=== PATIENT | male | born 1965 | race Caucasian/White ===

== ENCOUNTER → 2016-08-28 | Outpatient (CLI) | payer OTHER ==
[2016-08-28 16:48] LABS: Basophils # (A) 0.1 k/uL (0-0.2); Basophils % (A) 1 %; CH 29.4; CHCM 32.3; Eosinophils # (A) 0.3 k/uL (0-0.7); Eosinophils % (A) 3 %; HDW 2.24; HGB 13.3 gm/dL (13.0-17.5); Luc # (Auto) 0.16; Luc % (Auto) 2; Lymphocytes # (A) 2.7 k/uL (1.0-4.8); Lymphocytes % (A) 27 %; MCHC 31.8 g/dL (31.0-37.0); MCV 91.4 fL (80.0-100.0); Mean Platelet Volume 6.5; Monocytes # (A) 0.6 k/uL (0-1.0); Monocytes % (A) 6 %; Neutrophils # (A) 6.1 k/uL (1.3-7.7); Neutrophils % (A) 62 %; RDW 13.1 % (11.5-15.5); WBC 9.8 k/uL (3.8-10.6); WBC (Perox) 9.84
[2016-08-28 16:50] LABS: Appearance,Urine Clear (Clear); Bilirubin,Urine Negative (Negative); Glucose,Urine (UA) Negative (Negative); Ketones,Urine Negative (Negative); Leukocyte Esterase,Urine Negative (Negative); Nitrite,Urine Negative (Negative); PH, Urine 6.5 (5.0-8.0); Protein,Urine Trace (Negative); Specific Gravity,Urine 1.015 (1.001-1.035); UA Billing (MACRO vs. MICRO) CHEM; Urobilinogen,Urine <2.0 mg/dL (<2.0)
[2016-08-28 16:55] LABS: INR 1.1 (<1.1); Partial Thromboplastin Time 24.7 sec (22.0-30.0); Prothrombin Time 11.2 sec (9.0-12.0)
[2016-08-28 17:21] LABS: ALT 22 U/L (21-72); AST 22 U/L (17-59); Alkaline Phosphatase 41 U/L (38-126); Anion Gap 8 mmol/L; Blood Urea Nitrogen 24 mg/dL (9-20); Calcium 9.2 mg/dL (8.4-10.2); Carbon Dioxide 28 mmol/L (22-30); Chloride 101 mmol/L (98-107); Glucose 88 mg/dL (74-99); Non-African American GFR(MDRD) >60 (>60 ml/min/1.73 sqM); Potassium 4.5 mmol/L (3.5-5.1); Sodium 137 mmol/L (137-145); Total Bilirubin 0.4 mg/dL (0.2-1.3); Total Protein 7.4 g/dL (6.3-8.2)
== END | disposition home or self-care (01) ==
LOC: LABPAT 15:37
PROVIDERS: ATTEND Orthopaedic Surgery
DX: Z01.812 Encounter for preprocedural laboratory examination (principal); Z79.899 Other long term (current) drug therapy
CPT/HCPCS: 80053; 81003; 85025; 85610; 85730; 87070

== ENCOUNTER 2016-09-01 06:29 | Inpatient (IN) | payer OTHER ==
[2016-08-28 14:41] VITALS: BMI 20.2
[~2016-09-01 06:29] MED LIST: ACETAMINOPHEN TAB 500 MG TAB PO ONE; DEXAMETHASONE SOD PHOSPHATE 10 MG/ML 1 ML VIAL IV ONE; HYDROmorphone 1 MG/ML 1 ML SYRINGE IVP PRN; MELOXICAM 7.5 MG TAB PO ONE; MIDAZOLAM 2 MG/2 ML VIAL IV PRN; ONDANSETRON 4 MG/2 ML VIAL IVP ONE; SCOPOLAMINE 1.5MG/72HR PATCH TRANSDERM ONE; TRANEXAMIC ACID 1,000 MG in SODIUM CHLORIDE 0.9% 100 ML IVPB ONE; ceFAZolin 2 GM in SODIUM CHLORIDE 0.9% 100 ML IVPB ONE
[2016-09-01] MEDS ORDERED: LACTATED RINGERS 1,000 ML IV ONE ×2 (06:45→09:15)
[2016-09-01] MEDS ORDERED: LIDOCAINE 1% 20 ML VIAL (10MG/ML) FOR IV START INTRADERMA ONE (07:18)
[2016-09-01] MEDS ORDERED: SODIUM CHLORIDE 0.9% IRRIG 1,000 ML BTL IRRIGATION ONE (07:41)
[2016-09-01] MEDS ORDERED: HEPARIN SODIUM,PORCINE 10,000 UNIT/ML 1 ML VIAL ONE (07:41)
[2016-09-01] MEDS ORDERED: ceFAZolin 3,000 MG in SODIUM CHLORIDE 0.9% IRRIGATIO 3,000 ML IRRIGATION ONE (07:56)
[2016-09-01] MEDS: ROPIVACAINE 246.25 MG, EPINEPHrine 0.5 MG, KETOROLAC 30 MG, cloNIDine HCL/PF 80 MCG, WA... MISCELLANE ONE ×10 (08:12→09:17)
[2016-09-01] MEDS: LACTATED RINGERS 1,000 ML IV SCH (08:40)
--- NOTE | 2016-09-01 09:40 | P.OP ---
Date of Procedure: 09/01/16 Preoperative Diagnosis: Severe osteoarthritis the left hip secondary to developmental dysplasia Postoperative Diagnosis: Severe osteoarthritis the left hip secondary to developmental dysplasia Procedure(s) Performed: Left total hip arthroplasty with a direct anterior approach Implants: Kelley and nephew Polarstem size 3 standard Kelley & Nephew R3, 3 hole acetabular shell, 52 mm Kelley & Nephew reflection 6.5 mm cancellus screw, 20 mm 2 Kelley & Nephew R3, XLPE 20 acetabular liner Kelley & Nephew Oxinium femoral head 36 m, -3 All components were press-fit. The articulation is ceramic on polyethylene. Anesthesia: spinal Surgeon: Wale Kraus Electronic Imaging System Operator #1: Daly Villa Electronic Imaging System Operator #2: Rachel Shaw Estimated Blood Loss (ml): 350 (190 mL returned with Cell Saver) Pathology: other (Femoral head) Condition: stable Disposition: PACU Indications for Procedure: After failure of conservative treatment we discussed the surgical and nonsurgical treatment options at length. Patient wishes to proceed with a total hip arthroplasty with a direct anterior approach. Complications specific to this procedure were discussed at length, including but not limited to infection, leg length discrepancy, dislocation, and nerve injury. Patient is aware of all these complications and informed consent was obtained Operative Findings: The operative findings are consistent with severe osteoarthritis secondary to developmental dysplasia of the left hip. Description of Procedure: Patient was seen and evaluated in the preoperative area, consent was reviewed, and the surgical site was marked with a skin marker. Patient was then brought to the operating room and given prophylactic antibiotics intravenously. 1 g of Tranexamic acid was also given. A spinal anesthetic was administered by the anesthesia department. The patient was then placed on the [place] table with the bony prominences well-padded. The hip area was then prepped and draped in usual sterile fashion. A universal timeout was then performed, which confirmed the patient's name, surgical site, ALLERGIES, and procedure being performed. Next the incision site was located at 1 cm distal and 1 cm lateral to the anterior superior iliac spine. The skin and subcutaneous tissues were sharply incised. Incision was carefully dissected down to the fascia overlying the tensor fascia kristy muscle. This fascia was then incised in line with the incision. Next, using blunt finger dissection, the tensor fascia kristy muscle was dissected off its investing fascia. The muscle was then carefully retracted laterally with a cobra retractor over the lateral neck of the femur. Next, the circumflex vessels were identified and cauterized using the AquaMantis device. The anterior hip capsule was then exposed. The capsule was then opened and an inverted T fashion. Retention sutures were placed in the inferior arms of the capsule. Cobra retractors were then placed intracapsularly. The proximal femur was then visualized. The femoral neck was then osteotomized appropriate level above the lesser trochanter. Small amount of traction was placed with the [place] table. A small wedge of bone was then removed from the remaining femoral head. Next, using a corkscrew femoral head was easily removed from the acetabulum. On gross visual inspection, the femoral head had complete loss of articular cartilage in multiple periarticular osteophytes. Attention was then turned to the acetabulum. the acetabulum was exposed and any remaining labrum was excised. Sequential reaming of the acetabulum was performed using fluoroscopic guidance. When the appropriate size was reached, a trial was then placed. The position and fit of the trial was checked with fluoroscopy. The trial was then removed. Then, using fluoroscopic guidance, the final implant was impacted at 20 of anteversion and 40 of abduction, and fully seated in the acetabulum. 2 screws were then placed in the acetabulum. Again fluoroscopy was used to check position of the screws. Next, the liner was then impacted, with a 20 elevated liner located in the anterior superior quadrant. Component locking was confirmed. Attention was then directed to the femur. With the aid of the [place] table, the femur was externally rotated to approximately 130, extended, and abducted under the opposite leg. A side hook was then placed under the proximal femur, and the side hook elevator was used to elevate the proximal femur. Retractors were then placed. A capsular release was performed, as well as a release of the conjoined tendon, which afforded excellent visualization of the proximal femur. Next, a box osteotome was used to lateralize the proximal femur. A merchandise execution leader was then used to locate the femoral canal. Sequential broaching was then performed with appropriate size which afforded excellent fixation in the proximal femur. A trial was then placed with appropriate head and neck, and the hip was gently reduced with the aid of the [place] table. Fluoroscopy was then used to check position of the components, as well as to ensure equal leg lengths. The hip was then gently dislocated and the trials were then removed. Final implants were then impacted and the hip was again reduced. Final fluoroscopic x-rays confirmed that the components were in anatomic position, as well as equal leg lengths. The hip was also taken through range of motion, and found to be stable. The hip was then copiously irrigated with antibiotic solution with pulsatile lavage. The hip was then irrigated with Irrisept solution. The soft tissues were then injected with a ropivacaine solution, which consisted of 246.25 mg of ropivacaine, 0.5 mg of epinephrine, 30 mg of Toradol, 80 g of clonidine, and 48.45 mL of sterile water, for a total of 100 mL of fluid injected. A second dose of 1 g of Tranexamic acid was also given. the fascia was then closed with 2-0 strata fix suture. The subcutaneous tissue was closed with 3-0 Vicryl. The subcuticular tissue was closed with 3-0 strata fix suture. The skin was then closed with Dermabond tape. The patient was then transferred to the recovery room in stable condition. The auction assistant HELLEN Decker was required due to the complexity of surgery , and the need for skilled surgical aide for positioning, draping, exposure , retraction, and closure of the wound.
--- NOTE | 2016-09-01 09:42 | XR ---
Fluoroscopy History: Postop hip ANT LT HIP. 56 SECS FL TIME. [address] MORENO[address]
[2016-09-01] MEDS ORDERED: MAGNESIUM HYDROXIDE 2,400 MG/10 ML CUP PO PRN (09:55)
[2016-09-01] MEDS ORDERED: HYDROmorphone 1 MG/ML 1 ML SYRINGE IVP PRN ×3 (09:55)
[2016-09-01] MEDS ORDERED: ONDANSETRON 4 MG/2 ML VIAL IVP PRN (09:55)
[2016-09-01] MEDS ORDERED: DIAZEPAM 5 MG TAB PO PRN ×2 (09:55)
[2016-09-01] MEDS ORDERED: hydrOXYzine PAMOATE 25 MG CAP PO PRN (09:55)
[2016-09-01] MEDS ORDERED: HYDROcodone/APAP 7.5-325MG 1 EACH TAB PO PRN (09:55)
[2016-09-01] MEDS ORDERED: NALOXONE 0.4 MG/ML 1 ML VIAL IV PRN (09:55)
[2016-09-01] MEDS: SODIUM CHLORIDE 0.9% 1,000 ML IV SCH ×2 (11:00→23:48)
[2016-09-01] MEDS: HYDROcodone/APAP 7.5-325MG 1 EACH TAB PO PRN ×3 (13:29→23:46)
[2016-09-01] MEDS: ceFAZolin 2 GM in SODIUM CHLORIDE 0.9% 100 ML IVPB SCH ×2 (16:54→23:49)
[2016-09-01] MEDS ORDERED: SENNOSIDES-DOCUSATE SODIUM 1 EACH TAB PO SCH (21:00)
[2016-09-01] MEDS: ASPIRIN 325 MG TAB PO SCH (23:46)
[2016-09-02] MEDS: HYDROcodone/APAP 7.5-325MG 1 EACH TAB PO PRN (04:59)
[2016-09-02] MEDS: LACTATED RINGERS 1,000 ML IV SCH (06:27)
[2016-09-02 07:56] VITALS: BP 112/74; PULSE 58; RESP 16; TEMP 97.8
[2016-09-02 08:22] LABS: Basophils % (A) 0 %; CHCM 32.7; Eosinophils # (A) 0.1 k/uL (0-0.7); Eosinophils % (A) 1 %; HCT 31.3 % (39.0-53.0); HDW 2.24; Luc % (Auto) 2; Lymphocytes % (A) 17 %; MCH 29.3 pg (25.0-35.0); MCHC 31.8 g/dL (31.0-37.0); MCV 92.2 fL (80.0-100.0); Monocytes # (A) 0.9 k/uL (0-1.0); Monocytes % (A) 8 %; Neutrophils % (A) 73 %; RDW 13.4 % (11.5-15.5); WBC 12.2 k/uL (3.8-10.6); WBC (Perox) 13.02
[2016-09-02] MEDS: ASPIRIN 325 MG TAB PO SCH (08:49)
[2016-09-02] MEDS ORDERED: MELOXICAM 7.5 MG TAB PO SCH (09:00)
--- NOTE | 2016-09-02 09:41 | P.DS ---
Providers Date of admission: 09/01/16 06:29 Expected date of discharge: 09/02/16 Attending physician: Wale Kraus Consults: 09/01/16 09:55 Consult Physician Routine Consulting Provider: Hieu Gerber Consult Reason/Comments: medical management Do you want consulting provider notified?: Yes Primary care physician: Hieu Gibsonhven [facility] Hospital Course: This is a 51-year-old male with known history of degenerative arthritis of the left hip secondary to developmental dysplasia. The patient presents for evaluation. After discussion and consideration patient elects to proceed with total hip arthroplasty. The patient is seen preoperatively by Dr. Kraus and cleared for surgery. Patient is admitted to [facility] on 09/01/2016 for total hip arthroplasty. The procedures performed without complication or sequelae. The patient is doing well postoperatively. Labs and vital signs are stable on day of discharge. On day of discharge patient's hip incision is healing well. There is minimal erythema. There is no drainage noted at this time. There is minimal soft tissue swelling to the hip and thigh. Patient has full foot and ankle motion without difficulty or pain. Patient was up and walking with physical therapy with no difficulty. Neurovascular status to the left lower extremity is intact. Patient is discharged home in good condition. Please see med rec for accurate list of home medications. Plan - Discharge Summary New Discharge Prescriptions: Aspirin 325 mg PO BID #60 tab HYDROcodone/APAP 7.5-325MG [Roby 7.5-325] 1 - 2 tab PO Q4-6H PRN #60 tab PRN Reason: Pain Sennosides-Docusate Sodium [Senokot-S] 1 tab PO BID #60 tablet Discharge Medication List HYDROcodone/APAP 10-325MG [Roby 10-325] 1 tab PO Q6H PRN 08/28/16 [History] Aspirin 325 mg PO BID #60 tab 09/02/16 [Rx] HYDROcodone/APAP 7.5-325MG [Roby 7.5-325] 1 - 2 tab PO Q4-6H PRN #60 tab [Rx] Sennosides-Docusate Sodium [Senokot-S] 1 tab PO BID #60 tablet 09/02/16 [Rx] Follow up Appointment(s)/Referral(s): Wale Kraus DO [Doctor of Osteopathic Medicine] - 2 Weeks Activity/Diet/Wound Care/Special Instructions: Weightbearing as tolerated with walker May shower after 2 days if no drainage from the incision Follow-up with [facility] in 2 weeks with any questions or concerns, [phone] [facility]: #[phone] Discharge Disposition: HOME WITH HOME HEALTH SERVICES
--- NOTE | 2016-09-02 17:41 | CONS ---
DATE OF CONSULTATION: CHIEF COMPLAINT: Arthritis of the left hip. HISTORY OF PRESENT ILLNESS: This is the first admission for this 51-year-old white male to this hospital that I am aware of. He comes in for an elective left hip replacement. He has been in fairly good health, although he is a heavy smoker. REVIEW OF SYSTEMS: He has had no headaches, neurologic problems, difficulty with vision or hearing, cough, hemoptysis, heart disease, palpitations, murmurs, rheumatic fever, orthopnea, PND, abdominal pain, ( ) disease, nausea, vomiting, hematemesis, melena, hematochezia, colitis, diverticulosis, diverticulitis, hemorrhoids, jaundice, hepatitis, cirrhosis, hematuria, frequency, urgency, renal failure, diabetes, etc. Past medical history, family history, and personal and social histories are essentially unremarkable and can be found in his admitting summary. ALLERGIES: HE IS NOT ALLERGIC TO ANY MEDICATION. The only medicine that he has been taking is hydrocodone 10 mg every 4 hours p.r.n. He has had a pneumothorax in the past and he does smoke a pack of cigarettes a day. PHYSICAL EXAMINATION: Blood pressure 138/70 with a pulse of 86, respirations of 32 and temperature 99.2. GENERAL: He appeared to be slender, well developed, well nourished, in no acute distress. Skin color is normal. Skin is warm and dry. Lymph nodes are not enlarged. Head, ears, eyes, nose, mouth and throat were normal. NECK: Neck veins not distended. Thyroid is not enlarged. Chest is clear. Cardiac exam is normal. No murmurs or extra sounds. ABDOMEN: Flat, soft, nontender, without visceromegaly or masses. Bowel sounds are present. EXTREMITIES: Normal. Dressing on the left hip is dry. Pulses are good. NEUROLOGICAL: Intact. IMPRESSION: 1. Osteoarthritis of the left hip. 2. Chronic obstructive pulmonary disease. RECOMMENDATIONS: None. He is doing well.
--- NOTE | 2016-09-02 22:56 | PN ---
DATE OF SERVICE: 09/02/2016 CHIEF COMPLAINT: Status post left hip replacement. HISTORY OF PRESENT ILLNESS: The gentleman is doing well and may be going home today. PHYSICAL EXAMINATION: CHEST: Clear. CARDIAC: Normal. ABDOMEN: Soft, nontender. IMPRESSION: Status post left hip replacement. PLAN: Possibly home today. Will follow him as an outpatient.
--- NOTE | 2016-09-03 13:56 | XR ---
EXAMINATION TYPE: XR Hip Limited LT DATE OF EXAM: 09/01/2016 10:15 AM COMPARISON: NONE HISTORY: Postop TECHNIQUE: One view submitted. FINDINGS: There is a prosthetic hip in near anatomic alignment. There is soft tissue edema and emphysema. IMPRESSION: 1. Postoperative change. Appears in near-anatomic alignment.
== END 2016-09-02 11:48 | disposition home health service (06) | DRG 470 ==
LOC: 2ORMAIN 06:29 → 3SUR 09:54
PROVIDERS: ADMIT Orthopaedic Surgery; ATTEND Orthopaedic Surgery
PROC: 0SRB04A Replacement of Left Hip Joint with Ceramic on Polyethylene Synthetic Substitute, Uncemented, Open Approach (ICD-10-PCS; principal; 2016-09-01 07:30)
DX: M16.12 Unilateral primary osteoarthritis, left hip (principal); J44.9 Chronic obstructive pulmonary disease, unspecified; Z72.0 Tobacco use; Q65.89 Other specified congenital deformities of hip
CPT/HCPCS: 73501; 81025; 85025; 86850; 86891; 86900; 86901; 88300

== ENCOUNTER → 2016-11-15 | Outpatient (CLI) | payer OTHER ==
--- NOTE | 2016-11-15 11:28 | MR ---
PRE AND POSTCONTRAST ENHANCED MRI OF THE BRAIN: CLINICAL HISTORY: lower limb weakness CONTRAST: 15 ML Multihance Multiplanar and multispin-echo imaging of the brain was performed both before and after the administr ation of contrast. The ventricles, basal cisterns and sulci overlying the cerebral convexities are within normal limits. There is no evidence for midline shift or mass effect. Acute intracranial hemorrhage or extra-axial collection is not evident. Within both cerebral hemispheres within the hodges radiata, centrum semioval bilaterally subcortical location as well as periventricular location there are approximately 12-15 foci of small focal increa sed signal all measuring less than 4 mm which are nonspecific. Differential diagnostic possibilities include demyelination, chronic small vessel ischemic change, sequela of chronic migraine headaches an d Lyme's disease to name a few. There are also multiple foci of increased signal within the audi and midbrain. Following contrast administration, there is no evidence for pathologic enhancement or enhancing mass. The paranasal sinuses and mastoid air cells are well-aerated. IMPRESSION: 1. Foci of increased signal as noted with differential diagnostic possibilities discussed above. 2. No evidence for acute intracranial process.
== END | disposition home or self-care (01) ==
LOC: RADMRIMAIN 09:22
PROVIDERS: ATTEND Family Medicine
DX: R94.09 Abnormal results of other function studies of central nervous system (principal); M62.838 Other muscle spasm
CPT/HCPCS: 70553; A9577

== ENCOUNTER → 2017-03-16 | Outpatient (CLI) | payer OTHER ==
--- NOTE | 2017-03-16 20:55 | MR ---
EXAMINATION TYPE: MR lumbar spine wo con DATE OF EXAM: 03/16/2017 8:28 PM COMPARISON: NONE HISTORY: Low back pain with weakness in both legs for 2 years Multiplanar, MultiSpin echo imaging of the lumbar spine was performed. L1-L2: Normal disc appearance without desiccation. No herniation, protrusion or disc bulging. No ca nal stenosis is present. Foramina are patent bilaterally. L2-L3: Mild disc desiccation noted. Circumferential disc bulge. Mild effacement ventral thecal sac. N o evidence for disc herniation or central stenosis. No lateral recess stenosis. Facet joint arthropat hy with mild right foraminal encroachment. L3-L4: Mild disc desiccation noted. Circumferential disc bulge. Mild effacement ventral thecal sac. N o evidence for disc herniation or central stenosis. No lateral recess stenosis. Facet joint arthropat hy with mild right foraminal encroachment. L4-L5: Mild disc desiccation. Left lateral disc herniation situated at the level of the left neural f oramen resulting in left lateral recess stenosis and left foraminal encroachment. No evidence for muna tral stenosis. L5-S1: Moderate disc desiccation. Circumferential disc bulge. Mild effacement ventral thecal sac. No evidence for disc herniation or central stenosis. Bilateral foraminal encroachment with facet joint a rthropathy. Lumbar segments are intact. No paraspinal masses are identified. Conus medullaris has a normal appe arance. Multilevel left facet joint arthropathy and ventral spondylosis. IMPRESSION: 1. Multilevel degenerative disc disease. 2. Left lateral disc herniation at L4-5 resulting in left lateral recess stenosis and left foraminal encroachment.
== END | disposition home or self-care (01) ==
LOC: RADMRIMAIN 19:41
PROVIDERS: ATTEND Psychiatry & Neurology Neurology
DX: M48.061 Spinal stenosis, lumbar region without neurogenic claudication (principal); M51.26 Other intervertebral disc displacement, lumbar region; M51.36 Other intervertebral disc degeneration, lumbar region; Z87.81 Personal history of (healed) traumatic fracture
CPT/HCPCS: 72148

== ENCOUNTER 2017-07-20 09:40 | Day surgery (SDC) | payer OTHER ==
[2017-07-17 10:43] VITALS: BMI 18.8
[2017-07-20 11:18] VITALS: RESP 16; TEMP 98
[2017-07-20] MEDS: LACTATED RINGERS 1,000 ML IV SCH ×2 (11:19→11:41)
[2017-07-20] MEDS ORDERED: LIDOCAINE 1% 20 ML VIAL (10MG/ML) FOR IV START INTRADERMA ONE (11:19)
--- NOTE | 2017-07-20 12:01 | P.PCN ---
Date of Procedure: 07/20/17 Preoperative Diagnosis: Weakness and Paresthesia in the Lower Extremities Rule out multiple sclerosis Postoperative Diagnosis: Same as above Procedure(s) Performed: Lumbar puncture Surgeon: Elida Sanchez Description of Procedure: Anesthesia= IV sedation with Versed and fentanyl and local lidocaine infiltration 1% 2 mL for skin and subcu infiltration. Condition= stable. Complications=none. Indication for the procedure= patient with a history of symptoms suggestive of multiple sclerosis and she was referred to have a lumbar puncture for diagnostic study procedure risk and benefits and alternatives discussed with the patient and she agreed with the preceding, Description of the procedure= patient in the procedure room sitting position and monitors applied, the back prepped with chlorhexidine , sterile technique, local infiltration of the skin and subcu with lidocaine 1% 2 mL, then 22-gauge quickie Needle advanced slowly at L4-5 interlaminar space, intrathecal access was obtained easily with Clear CSF, and no heme no paresthesia, a total of 12 mL of clear cerebrospinal fluid collected in 4 different tubes, the needle removed, Band-Aid applied , patient tolerated the procedure well without any complications, and further management as per her neurologist
[2017-07-20 12:36] VITALS: BP 122/80; PULSE 61
[2017-07-20] MEDS ORDERED: IV FLUID CONTINUATION 1,000 ML IV ONE (12:36)
[2017-07-20 13:29] LABS: Glucose,CSF 58 mg/dL (40-70); Total Protein,CSF 46 mg/dL (12-60)
[2017-07-20 15:14] LABS: Appearance,CSF Clear
[2017-07-20 15:15] LABS: CSF Tube Number 4; CSF Tube Volume 3.2; Nucleated Cells, CSF 0 u/L (0-5); Red Blood Cell,CSF 0 u/L (0-10)
[2017-07-20 16:14] LABS: DNA Double-Stranded NEGATIVE (NEGATIVE); RNP <0.2 AI
[2017-07-20 17:01] LABS: Rheumatoid Factor 4 IU/mL (0-15)
[2017-07-21 04:40] LABS: Angiotensin-1 Converting Enz. 32 U/L (8-52)
[2017-07-21 10:24] LABS: VDRL, Qualitative CSF Nonreactive (Nonreactive)
[2017-07-21 11:03] LABS: T4, Total 5.7 ug/dL (4.5 - 10.9)
[2017-07-21 11:14] LABS: Lyme IgG/IgM 0.2 Index
[2017-07-21 11:22] LABS: APTT 44 Sec(s) (<43); APTT 1:1 Mix 42 Sec(s) (<43); Dilute Russell Viper Venom 42 Sec(s) (<44)
[2017-07-21 13:30] LABS: IgG - CSF 1.9 mg/dL (0.0 - 3.4); Immunoglobulin G 880 mg/dL (700 - 1600)
== END 2017-07-20 12:52 | disposition home or self-care (01) ==
LOC: ORPAIN 09:40
PROVIDERS: ATTEND Anesthesiology
DX: R20.2 Paresthesia of skin (principal); R53.1 Weakness
CPT/HCPCS: 87476; 86592; 86235 ×3; 84157; 82945; 82040; 82042; 82784; 83916; 82164 ×2; 83873; 84436; 84443; 84450; 84460; 85730; 86431; 85613; 89050; 86618; 86780; 86038; 86225; 62270; J2001; 85732; 88108; 99152

== ENCOUNTER 2017-10-13 09:45 | Inpatient (IN) | payer OTHER ==
[2017-12-18 09:41] VITALS: BMI 19.2
[2017-12-21] MEDS ORDERED: MELOXICAM 7.5 MG TAB PO ONE (05:00)
[2017-12-21] MEDS ORDERED: ceFAZolin IN SWFI 2 GM/20 ML SYRINGE IVP ONE (05:00)
[2017-12-21] MEDS ORDERED: TRANEXAMIC ACID 1,000 MG in SODIUM CHLORIDE 0.9% 50 ML IVPB ONE ×4 (05:00)
[2017-12-21] MEDS ORDERED: ACETAMINOPHEN TAB 500 MG TAB PO ONE (05:00)
[2017-12-21] MEDS ORDERED: fentaNYL (PF) 50 MCG/ML 2 ML AMP IV PRN (05:26)
[2017-12-21] MEDS ORDERED: SCOPOLAMINE 1.5MG/72HR PATCH TRANSDERM ONE (05:26)
[2017-12-21] MEDS ORDERED: DEXAMETHASONE SOD PHOSPHATE 10 MG/ML 1 ML VIAL IV ONE (05:26)
[2017-12-21] MEDS ORDERED: MIDAZOLAM 2 MG/2 ML VIAL IV PRN (05:26)
[2017-12-21] MEDS ORDERED: ONDANSETRON 4 MG/2 ML VIAL IVP ONE (05:26)
[2017-12-21] MEDS ORDERED: ROPIVACAINE 246.25 MG, EPINEPHrine 0.5 MG, KETOROLAC 30 MG, cloNIDine HCL/PF 80 MCG, WA... MISCELLANE ONE ×5 (05:59)
[2017-12-21] MEDS ORDERED: METOCLOPRAMIDE 5 MG/ML 2 ML VIAL ONE (06:35)
[2017-12-21] MEDS ORDERED: FAMOTIDINE 20 MG/2 ML VIAL ONE (06:35)
[2017-12-21] MEDS: LACTATED RINGERS 1,000 ML IV SCH (06:43)
[2017-12-21] MEDS ORDERED: LIDOCAINE 1% 20 ML VIAL (10MG/ML) FOR IV START INTRADERMA ONE (06:44)
[2017-12-21] MEDS ORDERED: HYDROcodone/APAP 7.5-325MG 1 EACH TAB PO PRN (06:55)
[2017-12-21] MEDS ORDERED: DIAZEPAM 5 MG TAB PO PRN ×2 (06:55)
[2017-12-21] MEDS ORDERED: hydrOXYzine PAMOATE 25 MG CAP PO PRN (06:55)
[2017-12-21] MEDS ORDERED: NALOXONE 0.4 MG/ML 1 ML VIAL IV PRN (06:55)
[2017-12-21] MEDS ORDERED: ONDANSETRON 4 MG/2 ML VIAL IVP PRN (06:55)
[2017-12-21] MEDS ORDERED: MAGNESIUM HYDROXIDE 2,400 MG/10 ML CUP PO PRN (06:55)
[2017-12-21] MEDS ORDERED: HYDROmorphone 1 MG/ML 1 ML SYRINGE IVP PRN ×3 (06:55)
[2017-12-21] MEDS ORDERED: MIDAZOLAM 2 MG/2 ML VIAL ONE (06:59)
[2017-12-21] MEDS ORDERED: SODIUM CHLORIDE 0.9% 100 ML BAG ONE (06:59)
[2017-12-21] MEDS ORDERED: HEPARIN SODIUM,PORCINE 10,000 UNIT/ML 1 ML VIAL ONE (06:59)
[2017-12-21] MEDS ORDERED: SODIUM CHLORIDE 0.9% IRRIG 1,000 ML BTL IRRIGATION ONE (06:59)
[2017-12-21] MEDS ORDERED: PROPOFOL 10 MG/ML 20 ML VIAL IV ONE (06:59)
[2017-12-21] MEDS ORDERED: fentaNYL (PF) 50 MCG/ML 2 ML AMP ONE (06:59)
[2017-12-21] MEDS ORDERED: TRANEXAMIC ACID 1,000 MG/10 ML VIAL ONE (06:59)
[2017-12-21] MEDS ORDERED: ceFAZolin 3,000 MG in SODIUM CHLORIDE 0.9% IRRIGATIO 3,000 ML IRRIGATION ONE (07:32)
[2017-12-21] MEDS ORDERED: LACTATED RINGERS 1,000 ML IV ONE (08:01)
--- NOTE | 2017-12-21 08:34 | P.OP ---
Date of Procedure: 12/21/17 Preoperative Diagnosis: Severe osteoarthritis right hip Postoperative Diagnosis: Severe osteoarthritis right hip Procedure(s) Performed: Right total hip arthroplasty with a direct anterior approach Implants: Kelley and nephew Polarstem size 3 standard Kelley & Nephew R3, 3 hole acetabular shell, 52 mm Kelley & Nephew reflection 6.5 mm cancellus screw, 20 mm 2 Kelley & Nephew R3, XLPE 20 acetabular liner Kelley & Nephew Oxinium femoral head 36 m, +8 All components were press-fit. The articulation is Oxinium on polyethylene. Surgeon: Wale Kraus Water Pollution Control Technician #1: Rachel Hinkle Estimated Blood Loss (ml): 225 (140 mL returned with Cell Saver) Pathology: other (Femoral head) Condition: stable Disposition: PACU Indications for Procedure: After failure of conservative treatment we discussed the surgical and nonsurgical treatment options at length. Patient wishes to proceed with a total hip arthroplasty with a direct anterior approach. Complications specific to this procedure were discussed at length, including but not limited to infection, leg length discrepancy, dislocation, and nerve injury. Patient is aware of all these complications and informed consent was obtained Operative Findings: The operative findings are consistent with severe osteoarthritis of the right hip Description of Procedure: Patient was seen and evaluated in the preoperative area, consent was reviewed, and the surgical site was marked with a skin marker. Patient was then brought to the operating room and given prophylactic antibiotics intravenously. 1 g of Tranexamic acid was also given. A spinal anesthetic was administered by the anesthesia department. The patient was then placed on the [place] table with the bony prominences well-padded. The hip area was then prepped and draped in usual sterile fashion. A universal timeout was then performed, which confirmed the patient's name, surgical site, ALLERGIES, and procedure being performed. Next the incision site was located at 1 cm distal and 1 cm lateral to the anterior superior iliac spine. The skin and subcutaneous tissues were sharply incised. Incision was carefully dissected down to the fascia overlying the tensor fascia kristy muscle. This fascia was then incised in line with the incision. Next, using blunt finger dissection, the tensor fascia krisyt muscle was dissected off its investing fascia. The muscle was then carefully retracted laterally with a cobra retractor over the lateral neck of the femur. Next, the circumflex vessels were identified and cauterized using the AquaMantis device. The anterior hip capsule was then exposed. The capsule was then opened and an inverted T fashion. Cobra retractors were then placed intracapsularly. The proximal femur was then visualized. The femoral neck was then osteotomized appropriate level above the lesser trochanter. Small amount of traction was placed with the [place] table. A small wedge of bone was then removed from the remaining femoral head. Next, using a corkscrew femoral head was easily removed from the acetabulum. On gross visual inspection, the femoral head had complete loss of articular cartilage in multiple periarticular osteophytes. Attention was then turned to the acetabulum. the acetabulum was exposed and any remaining labrum was excised. Sequential reaming of the acetabulum was performed using fluoroscopic guidance. When the appropriate size was reached, a trial was then placed. The position and fit of the trial was checked with fluoroscopy. The trial was then removed. Then, using fluoroscopic guidance, the final implant was impacted at 20 of anteversion and 40 of abduction, and fully seated in the acetabulum. 2 screws were then placed in the acetabulum. Again fluoroscopy was used to check position of the screws. Next, the liner was then impacted, with a 20 elevated liner located in the anterior superior quadrant. Component locking was confirmed. Attention was then directed to the femur. With the aid of the [place] table, the femur was externally rotated to approximately 130, extended, and abducted under the opposite leg. A side hook was then placed under the proximal femur, and the side hook elevator was used to elevate the proximal femur. Retractors were then placed. A capsular release was performed, as well as a release of the conjoined tendon, which afforded excellent visualization of the proximal femur. Next, a box osteotome was used to lateralize the proximal femur. A merchandise manager was then used to locate the femoral canal. Sequential broaching was then performed with appropriate size which afforded excellent fixation in the proximal femur. A trial was then placed with appropriate head and neck, and the hip was gently reduced with the aid of the [place] table. Fluoroscopy was then used to check position of the components, as well as to ensure equal leg lengths. The hip was then gently dislocated and the trials were then removed. Final implants were then impacted and the hip was again reduced. Final fluoroscopic x-rays confirmed that the components were in anatomic position, as well as equal leg lengths. The hip was also taken through range of motion, and found to be stable. The hip was then copiously irrigated with antibiotic solution with pulsatile lavage. The hip was then irrigated with Irrisept solution. The soft tissues were then injected with a ropivacaine solution, which consisted of 246.25 mg of ropivacaine, 0.5 mg of epinephrine, 30 mg of Toradol, 80 g of clonidine, and 48.45 mL of sterile water, for a total of 100 mL of fluid injected. A second dose of 1 g of Tranexamic acid was also given. the fascia was then closed with 2-0 strata fix suture. The subcutaneous tissue was closed with 3-0 Vicryl. The subcuticular tissue was closed with 3-0 strata fix suture. The skin was then closed with Dermabond glue and a sterile silver dressing. The patient was then transferred to the recovery room in stable condition. The speech assistant HELLEN Coe was required due to the complexity of surgery, and the need for skilled botany laboratory assistant for positioning, draping, exposure, retraction, and closure of the wound.
--- NOTE | 2017-12-21 08:49 | FL ---
Fluoroscopy History: Rt Hip-Ant 33sec fluoro time. Dr.Scott Kraus
--- NOTE | 2017-12-21 09:12 | XR ---
EXAMINATION TYPE: XR Hip Limited RT DATE OF EXAM: 12/21/2017 CLINICAL HISTORY: Postoperative evaluation TECHNIQUE: Single portable view of the right hip was submitted. FINDINGS: Noted are changes of total hip arthroplasty with femoral and acetabular components appearin g well seated. Alignment is anatomic. Postsurgical soft tissue changes are evident. IMPRESSION: Satisfactory postoperative alignment
[2017-12-21 09:21] VITALS: RESP 16
[2017-12-21] MEDS: SODIUM CHLORIDE 0.9% 1,000 ML IV SCH ×2 (09:46→23:32)
[2017-12-21] MEDS: HYDROcodone/APAP 7.5-325MG 1 EACH TAB PO PRN ×3 (11:54→23:30)
[2017-12-21] MEDS: ceFAZolin IN SWFI 2 GM/20 ML SYRINGE IVP SCH ×2 (15:43→23:31)
[2017-12-21] MEDS ORDERED: SENNOSIDES-DOCUSATE SODIUM 1 EACH TAB PO SCH (21:00)
[2017-12-21] MEDS: ASPIRIN 325 MG TAB PO SCH (21:43)
[2017-12-22] MEDS: HYDROcodone/APAP 7.5-325MG 1 EACH TAB PO PRN ×2 (05:19→10:21)
[2017-12-22 06:51] LABS: Basophils % (A) 0 %; Eosinophils # (A) 0.1 k/uL (0-0.7); Eosinophils % (A) 1 %; HCT 33.4 % (39.0-53.0); HGB 10.9 gm/dL (13.0-17.5); Lymphocytes # (A) 1.8 k/uL (1.0-4.8); Lymphocytes % (A) 13 %; MCH 29.5 pg (25.0-35.0); MCHC 32.6 g/dL (31.0-37.0); MCV 90.4 fL (80.0-100.0); Mean Platelet Volume 6.8; Monocytes # (A) 1.2 k/uL (0-1.0); Monocytes % (A) 9 %; Neutrophils # (A) 10.5 k/uL (1.3-7.7); Neutrophils % (A) 76 %; Platelet Count 179 k/uL (150-450); RBC 3.69 m/uL (4.30-5.90); RDW 13.7 % (11.5-15.5); WBC 13.7 k/uL (3.8-10.6)
[2017-12-22] MEDS: LACTATED RINGERS 1,000 ML IV SCH (07:07)
[2017-12-22 08:01] VITALS: BP 112/64; PULSE 61; TEMP 97.8
[2017-12-22] MEDS: ASPIRIN 325 MG TAB PO SCH (08:25)
[2017-12-22] MEDS ORDERED: MELOXICAM 7.5 MG TAB PO SCH (09:00)
--- NOTE | 2017-12-22 09:12 | P.DS ---
Providers Date of admission: 12/21/17 06:10 Expected date of discharge: 12/22/17 Attending physician: Wale Kraus Consults: 12/21/17 06:55 Consult Physician Routine Consulting Provider: Hieu Gerber Consult Reason/Comments: medical management Do you want consulting provider notified?: Yes Primary care physician: Hieu Gerber - Discharge Diagnosis(es) (1) Primary osteoarthritis of right hip Current Visit: Yes Status: Acute (2) S/P total hip arthroplasty Current Visit: Yes Status: Acute Hospital Course: This is a 52-year-old male with known history of degenerative arthritis of the right hip. The patient presents for evaluation. After discussion and consideration patient elects to proceed with total hip arthroplasty. The patient is seen preoperatively by Dr. Kraus and medically cleared for surgery by their primary care physician. Patient is admitted to [facility] on 12/21/2017 for total hip arthroplasty. The procedures performed without complication or sequelae. The patient is doing well postoperatively. Labs and vital signs are stable on day of discharge. On day of discharge patient's hip incision is healing well. There is minimal erythema. There is no drainage noted at this time. There is minimal soft tissue swelling to the hip and thigh. Patient has full foot and ankle motion without difficulty or pain. Neurovascular status to the right lower extremity is intact. Patient is discharged home in good condition. Please see med rec for accurate list of home medications. Plan - Discharge Summary Discharge Rx Participant: Yes New Discharge Prescriptions: New Aspirin 325 mg PO BID #60 tab Sennosides [Senokot] 1 tab PO BID #60 tablet No Action HYDROcodone/APAP 10-325MG [Zurich 10-325] 1 tab PO Q6H Diazepam [Valium] 5 mg PO DAILY PRN PRN Reason: Anxiety Discharge Medication List HYDROcodone/APAP 10-325MG [Zurich 10-325] 1 tab PO Q6H 08/28/16 [History] Diazepam [Valium] 5 mg PO DAILY PRN 12/18/17 [History] Aspirin 325 mg PO BID #60 tab 12/22/17 [Rx] Sennosides [Senokot] 1 tab PO BID #60 tablet 12/22/17 [Rx] Follow up Appointment(s)/Referral(s): Wale Kraus DO [Doctor of Osteopathic Medicine] - 2 Weeks Activity/Diet/Wound Care/Special Instructions: Weightbearing as tolerated with walker Leave dressing intact. Dressing may be removed by home care nurse in 10 days. May shower with dressing on. Follow-up with [facility] in 2 weeks, please call with any questions or concerns [phone] Discharge Disposition: HOME WITH HOME HEALTH SERVICES
--- NOTE | 2017-12-22 20:38 | PN ---
PROGRESS NOTE CHIEF COMPLAINT: Status post right FRIDA. HISTORY OF PRESENT ILLNESS: This gentleman apparently is doing well and he has either left the hospital and he is out of his bed. It is expected that he will go home today and he will follow up in the office. MMJULIO / RENNYN: [id number] /
--- NOTE | 2017-12-22 21:59 | CONS ---
CONSULTATION CHIEF COMPLAINT: Arthritis, right hip. HISTORY OF PRESENT ILLNESS: This gentleman is brought in for an elective right FRIDA. He has extensive history of cigarette smoking with COPD. REVIEW OF SYSTEMS: He has had no focal neurologic deficits, problems with vision or hearing, cough, hemoptysis, chest pain, heart disease, hypertension, orthopnea, PND, abdominal pain, vomiting, diarrhea, melena, urinary complaints, renal failure, diabetes, etc. PAST MEDICAL HISTORY, FAMILY HISTORY, PERSONAL AND SOCIAL HISTORIES: All detailed in his admitting summary. PHYSICAL EXAMINATION: Blood pressure is 135/87 with a pulse of 74, respirations of 36 and she is afebrile. In general, appeared to be slender, in no acute distress. Skin color is normal. Skin is warm and dry. Lymph nodes are not enlarged. Head, ears, eyes, nose, mouth, and throat are normal. Neck veins are not distended. Chest is clear. Breath sounds are somewhat diminished. Cardiac is normal sinus rhythm and no murmurs or extra sounds. Abdomen is flat, soft, nontender. Extremities are normal. Neurologically is intact. IMPRESSION: 1. Osteoarthritis of right hip. 2. Chronic obstructive pulmonary disease. RECOMMENDATIONS: None. MMODL / IJN: [id number] /
== END 2017-12-22 11:55 | disposition home or self-care (01) | DRG 470 ==
LOC: 2ORMAIN 12-21 06:10 → 3SUR 12-21 08:40
PROVIDERS: ADMIT Orthopaedic Surgery; ATTEND Orthopaedic Surgery
PROC: 30233N0 Transfusion of Autologous Red Blood Cells into Peripheral Vein, Percutaneous Approach (ICD-10-PCS; 2017-12-21)
PROC: 0SR906A Replacement of Right Hip Joint with Oxidized Zirconium on Polyethylene Synthetic Substitute, Uncemented, Open Approach (ICD-10-PCS; principal; 2017-12-21 07:00)
DX: M16.11 Unilateral primary osteoarthritis, right hip (principal); G35 Multiple sclerosis; M75.41 Impingement syndrome of right shoulder; M75.21 Bicipital tendinitis, right shoulder; J44.9 Chronic obstructive pulmonary disease, unspecified; F41.9 Anxiety disorder, unspecified; K21.9 Gastro-esophageal reflux disease without esophagitis; F17.210 Nicotine dependence, cigarettes, uncomplicated; Z71.6 Tobacco abuse counseling; H91.90 Unspecified hearing loss, unspecified ear; Z79.891 Long term (current) use of opiate analgesic; Z96.642 Presence of left artificial hip joint; Z98.1 Arthrodesis status
CPT/HCPCS: 73501; 85025; 86850; 86891; 86900; 86901; 88300

== ENCOUNTER → 2017-11-02 | Outpatient (CLI) | payer OTHER ==
[2017-11-02 18:23] LABS: Appearance,Urine Clear (Clear); Bilirubin,Urine Negative (Negative); Blood,Urine Negative (Negative); Color,Urine Yellow; Glucose,Urine (UA) Negative (Negative); Hyaline Casts,Urine 3 /lpf (0-2); Ketones,Urine Negative (Negative); Leukocyte Esterase,Urine Negative (Negative); Mucus,Urine Rare /hpf; Nitrite,Urine Negative (Negative); Protein,Urine 2+ (Negative); RBC,Urine 2 /hpf (0-5); Specific Gravity,Urine 1.023 (1.001-1.035); WBC,Urine 1 /hpf (0-5)
[2017-11-02 18:25] LABS: HCT 40.8 % (39.0-53.0); HGB 13.8 gm/dL (13.0-17.5); MCH 29.9 pg (25.0-35.0); MCHC 33.9 g/dL (31.0-37.0); Mean Platelet Volume 6.4; Platelet Count 226 k/uL (150-450); RBC 4.63 m/uL (4.30-5.90); RDW 13.6 % (11.5-15.5); WBC 6.6 k/uL (3.8-10.6)
[2017-11-02 18:33] LABS: Partial Thromboplastin Time 24.9 sec (22.0-30.0); Prothrombin Time 10.1 sec (9.0-12.0)
[2017-11-02 18:39] LABS: Albumin 4.2 g/dL (3.5-5.0); Calcium 9.6 mg/dL (8.4-10.2); Potassium 4.5 mmol/L (3.5-5.1); Total Bilirubin 0.5 mg/dL (0.2-1.3); Total Protein 6.7 g/dL (6.3-8.2)
== END | disposition home or self-care (01) ==
LOC: LABPAT 17:18
PROVIDERS: ATTEND Orthopaedic Surgery
DX: Z01.818 Encounter for other preprocedural examination (principal); Z01.812 Encounter for preprocedural laboratory examination
CPT/HCPCS: 80053; 81001; 85027; 85610; 85730; 87070; 93005

== ENCOUNTER → 2017-12-17 | Outpatient (CLI) | payer OTHER ==
[2017-12-17 17:51] LABS: HCT 41.3 % (39.0-53.0); MCH 28.3 pg (25.0-35.0); MCHC 31.4 g/dL (31.0-37.0); MCV 90.1 fL (80.0-100.0); Mean Platelet Volume 6.8; Platelet Count 223 k/uL (150-450); RBC 4.59 m/uL (4.30-5.90); RDW 13.5 % (11.5-15.5); WBC 9.7 k/uL (3.8-10.6)
[2017-12-17 18:02] LABS: ALT 29 U/L (21-72); AST 24 U/L (17-59); Albumin 4.2 g/dL (3.5-5.0); Alkaline Phosphatase 36 U/L (38-126); Anion Gap 8 mmol/L; Blood Urea Nitrogen 22 mg/dL (9-20); Calcium 9.4 mg/dL (8.4-10.2); Carbon Dioxide 25 mmol/L (22-30); Chloride 106 mmol/L (98-107); Glucose 112 mg/dL (74-99); Potassium 4.5 mmol/L (3.5-5.1); Sodium 139 mmol/L (137-145); Total Bilirubin 0.5 mg/dL (0.2-1.3); Total Protein 6.8 g/dL (6.3-8.2)
[2017-12-17 18:13] LABS: INR 1.1 (<1.2); Partial Thromboplastin Time 26.5 sec (22.0-30.0); Prothrombin Time 10.7 sec (9.0-12.0)
[2017-12-17 18:43] LABS: Amorphous Sediment,Urine Occasional /hpf; Appearance,Urine Clear (Clear); Bilirubin,Urine Negative (Negative); Blood,Urine Negative (Negative); Color,Urine Yellow; Glucose,Urine (UA) Negative (Negative); Hyaline Casts,Urine 7 /lpf (0-2); Ketones,Urine Negative (Negative); Leukocyte Esterase,Urine Negative (Negative); Mucus,Urine Rare /hpf; Nitrite,Urine Negative (Negative); Protein,Urine 2+ (Negative); RBC,Urine 1 /hpf (0-5); Specific Gravity,Urine 1.018 (1.001-1.035); Squamous Epithelial Cell,Urine <1 /hpf (0-4); Urobilinogen,Urine <2.0 mg/dL (<2.0); WBC,Urine 2 /hpf (0-5)
== END | disposition home or self-care (01) ==
LOC: LABPAT 16:33
PROVIDERS: ATTEND Orthopaedic Surgery
DX: Z01.812 Encounter for preprocedural laboratory examination (principal)
CPT/HCPCS: 36415; 80053; 81001; 85027; 85610; 85730

== ENCOUNTER 2022-02-04 18:00 | Emergency (ER) | payer OTHER, MEDICARE ==
[2022-02-04 18:11] VITALS: BP 166/83; PULSE 100; RESP 20; TEMP 98.3
[2022-02-04] MEDS ORDERED: MORPHINE SULFATE 4 MG/ML SYRINGE IVP STA (19:12)
[2022-02-04] MEDS ORDERED: SODIUM CHLORIDE 0.9% 1,000 ML IV STA (19:39)
--- NOTE | 2022-02-04 20:23 | XR ---
EXAMINATION TYPE: XR wrist complete LT DATE OF EXAM: 02/04/2022 COMPARISON: NONE HISTORY: Pain TECHNIQUE: 4 views FINDINGS: Carpal bones are intact. I see no fracture nor dislocation. Metacarpals are intact. Radioca rpal joint appears normal. IMPRESSION: Negative left wrist exam. No fracture seen
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
--- NOTE | 2022-02-04 20:32 | XR ---
EXAMINATION TYPE: XR scapula LT DATE OF EXAM: 02/04/2022 COMPARISON: NONE HISTORY: Pain TECHNIQUE: 2 view FINDINGS: The scapula appears intact. I see no fracture line. AC joint is intact. IMPRESSION: Negative left scapula exam.
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
== END 2022-02-04 21:20 | disposition home or self-care (01) ==
LOC: EC 18:00
DX: M25.532 Pain in left wrist (principal); M25.512 Pain in left shoulder; F17.200 Nicotine dependence, unspecified, uncomplicated; V49.40XA Driver injured in collision with unspecified motor vehicles in traffic accident, initial encounter; Y92.410 Unspecified street and highway as the place of occurrence of the external cause
CPT/HCPCS: 70450; 72125; 99284